=== PATIENT | female | born 1975 | race African-American/Black ===

== ENCOUNTER 2019-02-11 20:35 | Emergency (ER) | payer MEDICAID ==
[~2019-02-11] VITALS: Ht 162.6 cm; Wt 78.0 kg
[~2019-02-11 20:35] MED LIST: ONDA4TAB5; TYLENOL
[2019-02-11] MEDS ORDERED: IBUPROFEN 600MG TABLET PO ONE (23:30)
[2019-02-12 00:47] VITALS: BP 115/89
== END 2019-02-12 00:48 | disposition home or self-care (01) ==
LOC: ER 20:35
DX: M25.531 Pain in right wrist (principal)
CPT/HCPCS: 73110; 81025; 99283

== ENCOUNTER 2020-03-03 01:49 | Emergency (ER) | payer MEDICAID ==
[~2020-03-03] VITALS: Ht 165.1 cm; Wt 81.0 kg
[2020-03-03 02:49] VITALS: BP 144/81
== END 2020-03-03 02:50 | disposition home or self-care (01) ==
LOC: ER 01:49
DX: Z00.00 Encounter for general adult medical examination without abnormal findings (principal); I10 Essential (primary) hypertension; R53.1 Weakness
CPT/HCPCS: 99281

== ENCOUNTER 2021-02-03 11:35 | Emergency (ER) | payer MEDICAID ==
[~2021-02-03] VITALS: Ht 170.2 cm; Wt 81.0 kg
[2021-02-03] MEDS ORDERED: ONDANSETRON HCL 4MG/2ML INJ IV STA (12:07)
[2021-02-03] MEDS ORDERED: SODIUM CHLORIDE 0.9% 1,000 ML IV ONE (12:15)
[2021-02-03 12:36] LABS: BASOPHILS % 1.4 % (0.0-2.0); EOSINOPHILS % 1.7 % (0.0-5.0); HEMATOCRIT. 38.6 % (36.0-48.0); HEMOGLOBIN. 12.1 g/dL (12.0-16.0); LYMPHOCYTES % 29.4 % (20.0-50.0); MEAN CORPUSCULAR HEMOGLOBIN 24.2 pg (28.0-32.0); MEAN CORPUSCULAR VOLUME 77.3 fL (81.0-99.0); MEAN PLATELET VOLUME 9.6 fl (7.4-10.4); MONOCYTES % 4.1 % (2.0-8.0); NEUTROPHILS % 63.4 % (40.0-76.0); PLATELET 171 x1000/uL (130-400); RED CELL DISTRIBUTION WIDTH 16.6 % (11.6-14.6)
[2021-02-03 12:40] LABS: CHLORIDE 105 mEq/L (98-107)
[2021-02-03 14:03] LABS: *AMPHETAMINES SCREEN URINE NEGATIVE (NEGATIVE); *BARBITURATES SCREEN URINE NEGATIVE (NEGATIVE); *BENZODIAZEPINES SCREEN URINE NEGATIVE (NEGATIVE); *COCAINE SCREEN URINE NEGATIVE (NEGATIVE); METHADONE URINE SCREEN NEGATIVE (NEGATIVE); OPIATES URINE SCREEN NEGATIVE (NEGATIVE)
[2021-02-03 14:04] LABS: PHENCYCLIDINE URINE SCREEN NEGATIVE (NEGATIVE)
[2021-02-03 14:09] LABS: CANNABINOID URINE SCREEN PRESUMTIVE POSITIVE (NEGATIVE)
[2021-02-03 14:33] VITALS: BP 150/84
== END 2021-02-03 14:44 | disposition home or self-care (01) ==
LOC: ER 11:35
DX: F12.10 Cannabis abuse, uncomplicated (principal); I10 Essential (primary) hypertension; Z91.018 Allergy to other foods
CPT/HCPCS: 36415; 80053; 80305; 85025; 99283; J7030